=== PATIENT | female | born 1955 | race Caucasian/White ===

== ENCOUNTER 2021-06-29 09:49 | Observation (INO) ==
[2021-06-29 15:13] LABS: Basophils # 0.1 10*3/uL (0.0-0.2); Basophils % 0.5 % (0.0-0.8); Hematocrit 47.8 VOL% (35.7-47.0); Hemoglobin 16.4 GM/DL (12.0-16.0); Immature Granulocytes % 0.7 %; Immature Granulocytes Absolute 0.09 #; Lymphocytes # 0.8 10*3/uL (1.4-4.0); Lymphocytes % 6.3 % (21.3-54.2); Mean Corpuscular HGB Conc 34.3 GM/DL (32-36); Mean Corpuscular Volume 86.3 FL (87-102); Mean Platelet Volume 8.7 FL (9.6-12.0); Monocytes % 7.8 % (1.7-12.7); Neutrophils % 84.7 % (38.7-73.9); Platelet Count 288 T/CUMM (130-400); Red Blood Count 5.54 MC/CUMM (3.8-5.5); Red Cell Distribution Width 14.9 % (9.3-17.3); White Blood Count 12.6 T/CUMM (4-12)
[2021-06-29 15:44] LABS: Albumin 3.3 G/DL (3.4-5.0); Bilirubin,Total 0.9 MG/DL (0.20-1.00); Osmolality,Calculated 247.4 MOS/KG (273-304); Potassium 4.4 MMOL/L (3.5-5.1); Total Protein 6.9 G/DL (6.4-8.2)
[2021-06-29 16:38] LABS: Bilirubin,Urine Negative (Negative); Blood, Urine Negative (Negative); Glucose,Urine (UA) Negative (Negative); Ketones,Urine 5 mg/dL (Negative); Mucus,Urine Occasional /LPF (Occasional); Nitrite,Urine Negative (Negative); Protein,Urine Negative; Squamous Epithelial Cell,Urine Occasional /HPF (0-10); Urine Appearance CLEAR (Clear); Urine Color Yellow (Yellow); Urine Specific Gravity 1.003 (1.001-1.035); Urine Urobilinogen < 2.0 EU/DL (0.2-1.0)
[2021-06-29] MEDS ORDERED: NITROGLYCERIN SL 0.4 MG TABLET SL PRN (17:25)
[2021-06-29] MEDS ORDERED: ACETAMINOPHEN 325 MG TABLET PO PRN (17:25)
[2021-06-29] MEDS ORDERED: ONDANSETRON 4 MG/2 ML VIAL IV PRN (17:25)
[2021-06-29] MEDS ORDERED: DEXTROSE 50% 25 GM/50 ML SYRINGE IV PRN (17:25)
[2021-06-29] MEDS ORDERED: MORPHINE 2 MG/1 ML SYRINGE IV PRN (17:25)
[2021-06-29] MEDS ORDERED: hydrALAZINE 20 MG/1 ML VIAL IV PRN (17:25)
[2021-06-29] MEDS ORDERED: DOCUSATE SODIUM 100 MG CAPSULE PO PRN (17:25)
[2021-06-29] MEDS ORDERED: GLUCAGON 1 MG VIAL IM PRN (17:25)
[2021-06-29] MEDS ORDERED: DEXTROSE 5% NACL 0.9% 1,000 ML IV SCH (17:30)
[2021-06-29 17:54] LABS: Barbiturates Screen,Urine Negative (Negative); Benzodiazepines Screen,Urine Negative (Negative); Cannabinoid Screen,Urine Negative (Negative); Opiate Screen,Urine Negative (Negative); Phencyclidine Screen,Urine Negative (Negative)
[2021-06-29] MEDS ORDERED: NICOTINE 21 MG/24 HR PATCH TRANSDERM PRN (18:01)
[2021-06-29 18:02] LABS: Risk Ratio 1.52; Thyroid Stimulating Hormone 6.67 uIU/ml (0.358-3.74)
[2021-06-29 18:46] LABS: Folate > 24.00 NG/ML (5.38-24.0); Vitamin B12 > 2000 PG/ML (211-911)
[2021-06-29 19:48] LABS: INR 1.1; PT Patient Result 12.3 SECS (10.5-12.0); Partial Thromboplastin Time 33.5 SECS (23.8-32.1)
[2021-06-29] MEDS: ENOXAPARIN 40 MG/0.4 ML SYRINGE SUBCUT SCH (19:57)
[2021-06-29] MEDS: chlordiazePOXIDE 25 MG CAPSULE PO SCH (21:19)
[2021-06-30] MEDS: chlordiazePOXIDE 25 MG CAPSULE PO SCH ×2 (02:14→13:02)
[2021-06-30 05:57] LABS: Calcium 8.1 MG/DL (8.5-10.1); Osmolality,Calculated 256.7 MOS/KG (273-304); Potassium 3.5 MMOL/L (3.5-5.1)
[2021-06-30 06:10] LABS: Basophils # 0.1 10*3/uL (0.0-0.2); Basophils % 0.7 % (0.0-0.8); Eosinophils % 0.4 % (0.00-10.9); Hematocrit 41.1 VOL% (35.7-47.0); Immature Granulocytes % 0.7 %; Immature Granulocytes Absolute 0.05 #; Lymphocytes # 0.9 10*3/uL (1.4-4.0); Lymphocytes % 13.7 % (21.3-54.2); Mean Corpuscular HGB Conc 33.6 GM/DL (32-36); Mean Corpuscular Volume 88.8 FL (87-102); Mean Platelet Volume 9.2 FL (9.6-12.0); Monocytes % 9.9 % (1.7-12.7); Neutrophils % 74.6 % (38.7-73.9); Platelet Count 250 T/CUMM (130-400); Red Blood Count 4.63 MC/CUMM (3.8-5.5); Red Cell Distribution Width 15.1 % (9.3-17.3)
[2021-06-30] MEDS ORDERED: MAGNESIUM SULF RIDER 4 GM/100 ML PREMIX IV ONE (06:10)
[2021-06-30] MEDS ORDERED: POTASSIUM CHLORIDE 20 MEQ TABLET PO ONE (06:11)
[2021-06-30 06:21] LABS: Hemoglobin 13.8 GM/DL (12.0-16.0); White Blood Count 6.8 T/CUMM (4-12)
[2021-06-30] MEDS ORDERED: diphenhydrAMINE CAP 25 MG CAPSULE PO ONE (09:04)
[2021-06-30] MEDS ORDERED: DIAZEPAM 5 MG TABLET PO ONE (09:04)
[2021-06-30] MEDS ORDERED: ASPIRIN CHEW 81 MG TABLET PO ONE (09:04)
[2021-06-30] MEDS: SODIUM CHLORIDE 0.9% 1,000 ML IV SCH ×2 (09:29→20:34)
[2021-06-30] MEDS ORDERED: HYDROmorphone 2 MG/1 ML VIAL ONE (09:34)
[2021-06-30] MEDS ORDERED: lisinopriL 10 MG TABLET PO SCH (09:34)
[2021-06-30] MEDS ORDERED: MIDAZOLAM 2 MG/2 ML VIAL ONE (09:34)
[2021-06-30] MEDS ORDERED: LORazepam 2 MG/1 ML VIAL IV PRN (12:10)
[2021-06-30] MEDS: AZITHROMYCIN INJ 500 MG in SODIUM CHLORIDE 0.9% 250 ML IV SCH (12:37)
[2021-06-30] MEDS: methylPREDNISolone SOD SUC 40 MG/1 ML VIAL IV SCH ×2 (12:41→17:38)
[2021-06-30] MEDS: THIAMINE 100 MG TABLET PO SCH (12:42)
[2021-06-30] MEDS: MULTIVITAMIN (CENTRUM) TABLET PO SCH (12:42)
[2021-06-30] MEDS: FOLIC ACID 1 MG TABLET PO SCH (12:42)
[2021-06-30] MEDS: PANTOPRAZOLE 40 MG TABLET PO SCH (12:42)
[2021-06-30] MEDS: METOPROLOL SUCCINATE XL 25 MG TABLET PO SCH (15:00)
[2021-06-30 16:13] LABS: ABG Base Excess 5.3 MMOL/L (-2.5-2.5); ABG HCO3 28.9 MMOL/L (20-26); ABG PCO2 53.5 MM HG (35-48); ABG PH 7.386 (7.35-7.45); ABG PO2 59.5 MM HG (80-95); ABG TCO2 27.5 MMOL/L (23-27)
[2021-06-30] MEDS: ALBUTEROL/IPRATROPIUM 3 ML NEB RESP TX SCH ×3 (16:24→22:40)
[2021-06-30] MEDS: ENOXAPARIN 40 MG/0.4 ML SYRINGE SUBCUT SCH (17:37)
[2021-06-30] MEDS ORDERED: METOPROLOL SUCCINATE XL 25 MG TABLET PO SCH (21:00)
[2021-06-30] MEDS ORDERED: VERAPAMIL SR 120 MG TABLET PO SCH (21:00)
[2021-07-01] MEDS: methylPREDNISolone SOD SUC 40 MG/1 ML VIAL IV SCH ×2 (01:00→06:23)
[2021-07-01] MEDS: SODIUM CHLORIDE 0.9% 1,000 ML IV SCH ×3 (01:31→13:28)
[2021-07-01] MEDS: ALBUTEROL/IPRATROPIUM 3 ML NEB RESP TX SCH ×4 (03:00→15:17)
[2021-07-01 06:37] LABS: Hematocrit 38.1 VOL% (35.7-47.0); Hemoglobin 12.4 GM/DL (12.0-16.0); Immature Granulocytes Absolute 0.15 #; Lymphocytes # 0.4 10*3/uL (1.4-4.0); Lymphocytes % 5.8 % (21.3-54.2); Mean Corpuscular HGB Conc 32.5 GM/DL (32-36); Mean Corpuscular Volume 89.9 FL (87-102); Mean Platelet Volume 9.1 FL (9.6-12.0); Monocytes % 3.1 % (1.7-12.7); Neutrophils % 89.1 % (38.7-73.9); Platelet Count 231 T/CUMM (130-400); Red Blood Count 4.24 MC/CUMM (3.8-5.5); Red Cell Distribution Width 15.7 % (9.3-17.3); White Blood Count 7.5 T/CUMM (4-12)
[2021-07-01 06:59] LABS: Calcium 7.7 MG/DL (8.5-10.1); Osmolality,Calculated 266.4 MOS/KG (273-304); Potassium 4.3 MMOL/L (3.5-5.1)
[2021-07-01] MEDS ORDERED: ASPIRIN EC 81 MG TABLET PO SCH (09:00)
[2021-07-01] MEDS ORDERED: CLOPIDOGREL 75 MG TABLET PO SCH (09:00)
[2021-07-01] MEDS: THIAMINE 100 MG TABLET PO SCH (09:07)
[2021-07-01] MEDS: MULTIVITAMIN (CENTRUM) TABLET PO SCH (09:07)
[2021-07-01] MEDS: METOPROLOL SUCCINATE XL 25 MG TABLET PO SCH (09:07)
[2021-07-01] MEDS: PANTOPRAZOLE 40 MG TABLET PO SCH (09:07)
[2021-07-01] MEDS: FOLIC ACID 1 MG TABLET PO SCH (09:07)
[2021-07-01 12:16] VITALS: BP 97/55
[2021-07-01] MEDS: AZITHROMYCIN INJ 500 MG in SODIUM CHLORIDE 0.9% 250 ML IV SCH (12:44)
[2021-07-01] MEDS ORDERED: methylPREDNISolone SOD SUC 40 MG/1 ML VIAL IV SCH ×2 (14:00→18:00)
== END 2021-07-01 15:28 | disposition home health service (06) ==
LOC: N.ED 09:49 → N.TELEN 09:49
PROVIDERS: ADMIT Internal Medicine; ATTEND Internal Medicine
PROC: CLCCHCL (ICD-10-PCS; 2021-06-30 09:45)

== ENCOUNTER 2021-08-05 13:29 | Inpatient (IN) ==
[2021-08-05] MEDS ORDERED: SODIUM CHLORIDE 0.9% 1,000 ML IV STA (14:12)
[2021-08-05 14:51] LABS: Basophils % 0.3 % (0.0-0.8); Eosinophils % 0.3 % (0.00-10.9); Hematocrit 37.8 VOL% (35.7-47.0); Hemoglobin 13.1 GM/DL (12.0-16.0); Immature Granulocytes % 1.2 %; Immature Granulocytes Absolute 0.11 #; Lymphocytes # 0.6 10*3/uL (1.4-4.0); Lymphocytes % 6.7 % (21.3-54.2); Mean Corpuscular HGB Conc 34.7 GM/DL (32-36); Mean Corpuscular Volume 86.9 FL (87-102); Mean Platelet Volume 9.1 FL (9.6-12.0); Monocytes % 9.3 % (1.7-12.7); Neutrophils % 82.2 % (38.7-73.9); Platelet Count 255 T/CUMM (130-400); Red Blood Count 4.35 MC/CUMM (3.8-5.5); Red Cell Distribution Width 14.1 % (9.3-17.3); White Blood Count 9.2 T/CUMM (4-12)
[2021-08-05 15:19] LABS: Bacteria,Urine Occasional /HPF (Few); Bilirubin,Urine Negative (Negative); Blood, Urine Negative (Negative); Glucose,Urine (UA) Negative (Negative); Hyaline Casts,Urine 5 /LPF (0-3); Ketones,Urine 20 mg/dL (Negative); Mucus,Urine Occasional /LPF (Occasional); Nitrite,Urine Negative (Negative); Protein,Urine Negative; Squamous Epithelial Cell,Urine Occasional /HPF (0-10); Urine Appearance Slightly Hazy (Clear); Urine Color Amber (Yellow); Urine Specific Gravity 1.011 (1.001-1.035); Urine Urobilinogen < 2.0 EU/DL (<2.0)
[2021-08-05 15:23] LABS: Albumin 3.2 G/DL (3.4-5.0); Bilirubin,Total 0.8 MG/DL (0.20-1.00); Osmolality,Calculated 223.6 MOS/KG (273-304); Potassium 3.5 MMOL/L (3.5-5.1); Prealbumin 11.3 MG/DL (20-40); Total Protein 6.2 G/DL (6.4-8.2)
[2021-08-05] MEDS ORDERED: HYDROCORTISONE 100 MG VIAL IV STA (16:22)
[2021-08-05] MEDS ORDERED: ALBUTEROL 2.5 MG/3 ML NEB RESP TX PRN (16:23)
[2021-08-05] MEDS ORDERED: ONDANSETRON 4 MG/2 ML VIAL IV PRN (16:23)
[2021-08-05] MEDS ORDERED: ACETAMINOPHEN 325 MG TABLET PO PRN (16:23)
[2021-08-05] MEDS ORDERED: SODIUM CHLORIDE 3% INJ 500 ML IV SCH (16:30)
[2021-08-05] MEDS: PANTOPRAZOLE 40 MG VIAL IV SCH (18:06)
[2021-08-05] MEDS: FLUDROCORTISONE 0.1 MG TABLET PO SCH (18:59)
[2021-08-05 19:18] LABS: Calcium 8.4 MG/DL (8.5-10.1); Osmolality,Calculated 226.3 MOS/KG (273-304); Potassium 3.2 MMOL/L (3.5-5.1)
[2021-08-05] MEDS: cefTRIAXone 1,000 MG in SODIUM CHLORIDE 0.9% 100 ML IV SCH (20:23)
[2021-08-05 20:25] LABS: Calcium 8.5 MG/DL (8.5-10.1); Osmolality,Calculated 227.2 MOS/KG (273-304); Potassium 3.4 MMOL/L (3.5-5.1)
[2021-08-05] MEDS: ALBUTEROL/IPRATROPIUM 3 ML NEB RESP TX SCH (20:45)
[2021-08-05] MEDS: ENOXAPARIN 30 MG/0.3 ML SYRINGE SUBCUT SCH (21:31)
[2021-08-05] MEDS: HYDROCORTISONE 100 MG VIAL IV SCH (21:32)
[2021-08-05 22:18] LABS: Osmolality,Calculated 236.5 MOS/KG (273-304); Potassium 3.4 MMOL/L (3.5-5.1)
[2021-08-06 00:21] LABS: Calcium 8.2 MG/DL (8.5-10.1); Osmolality,Calculated 232.8 MOS/KG (273-304); Potassium 3.5 MMOL/L (3.5-5.1)
[2021-08-06] MEDS: MAGNESIUM SULF RIDER 4 GM/100 ML PREMIX IV PRN (00:38)
[2021-08-06] MEDS: ALBUTEROL/IPRATROPIUM 3 ML NEB RESP TX SCH ×4 (01:26→20:15)
[2021-08-06 02:40] LABS: Calcium 8.2 MG/DL (8.5-10.1); Osmolality,Calculated 240.2 MOS/KG (273-304); Potassium 3.4 MMOL/L (3.5-5.1)
[2021-08-06] MEDS: FLUDROCORTISONE 0.1 MG TABLET PO SCH ×3 (02:53→20:50)
[2021-08-06] MEDS: HYDROCORTISONE 100 MG VIAL IV SCH ×4 (03:09→20:50)
[2021-08-06] MEDS ORDERED: DEXTROSE 5% 1,000 ML IV SCH (03:30)
[2021-08-06 04:17] LABS: Basophils % 0.2 % (0.0-0.8); Eosinophils % 0.2 % (0.00-10.9); Hemoglobin 11.9 GM/DL (12.0-16.0); Immature Granulocytes % 1.9 %; Immature Granulocytes Absolute 0.11 #; Lymphocytes # 0.3 10*3/uL (1.4-4.0); Lymphocytes % 5.3 % (21.3-54.2); Mean Corpuscular Volume 88.2 FL (87-102); Mean Platelet Volume 10.2 FL (9.6-12.0); Neutrophils % 87.4 % (38.7-73.9); Platelet Count 296 T/CUMM (130-400); Red Blood Count 3.97 MC/CUMM (3.8-5.5); Red Cell Distribution Width 14.6 % (9.3-17.3); White Blood Count 5.8 T/CUMM (4-12)
[2021-08-06 05:24] LABS: Calcium 8.5 MG/DL (8.5-10.1); Osmolality,Calculated 235.6 MOS/KG (273-304); Potassium 3.8 MMOL/L (3.5-5.1)
[2021-08-06 06:22] LABS: Calcium 8.3 MG/DL (8.5-10.1); Osmolality,Calculated 241.2 MOS/KG (273-304); Potassium 3.4 MMOL/L (3.5-5.1)
[2021-08-06 08:50] LABS: Calcium 8.1 MG/DL (8.5-10.1); Osmolality,Calculated 238.5 MOS/KG (273-304); Potassium 3.3 MMOL/L (3.5-5.1)
[2021-08-06] MEDS: CLOPIDOGREL 75 MG TABLET PO SCH (09:30)
[2021-08-06] MEDS: ASPIRIN EC 81 MG TABLET PO SCH (09:30)
[2021-08-06 10:49] LABS: Calcium 8.6 MG/DL (8.5-10.1); Osmolality,Calculated 239.3 MOS/KG (273-304); Potassium 3.4 MMOL/L (3.5-5.1)
[2021-08-06] MEDS: SODIUM CHLORIDE 3% INJ 500 ML IV SCH (10:50)
[2021-08-06 14:13] LABS: Calcium 8.1 MG/DL (8.5-10.1); Osmolality,Calculated 238.3 MOS/KG (273-304); Potassium 3.3 MMOL/L (3.5-5.1)
[2021-08-06] MEDS ORDERED: BUPRENORPHINE NALOXONE SL PRN (15:42)
[2021-08-06 16:20] LABS: Calcium 8.2 MG/DL (8.5-10.1); Osmolality,Calculated 239.5 MOS/KG (273-304); Potassium 3.2 MMOL/L (3.5-5.1)
[2021-08-06] MEDS: POTASSIUM CHLORIDE 20 MEQ TABLET PO PRN ×3 (16:44→23:55)
[2021-08-06] MEDS: PANTOPRAZOLE 40 MG VIAL IV SCH (16:44)
[2021-08-06] MEDS: NICOTINE 21 MG/24 HR PATCH TRANSDERM PRN (16:45)
[2021-08-06] MEDS: cefTRIAXone 1,000 MG in SODIUM CHLORIDE 0.9% 100 ML IV SCH (17:55)
[2021-08-06 18:53] LABS: Calcium 8.1 MG/DL (8.5-10.1); Osmolality,Calculated 241.3 MOS/KG (273-304); Potassium 3.3 MMOL/L (3.5-5.1)
[2021-08-06 20:32] LABS: Calcium 8.3 MG/DL (8.5-10.1); Osmolality,Calculated 250.2 MOS/KG (273-304); Potassium 3.6 MMOL/L (3.5-5.1)
[2021-08-06] MEDS: ENOXAPARIN 30 MG/0.3 ML SYRINGE SUBCUT SCH (20:50)
[2021-08-06 21:45] LABS: Osmolality,Calculated 260.8 MOS/KG (273-304); Potassium 3.6 MMOL/L (3.5-5.1)
[2021-08-06 23:50] LABS: Calcium 8.2 MG/DL (8.5-10.1); Osmolality,Calculated 261.5 MOS/KG (273-304); Potassium 3.8 MMOL/L (3.5-5.1)
[2021-08-07] MEDS: MAGNESIUM SULF RIDER 2 GM/50 ML PREMIX IV PRN (00:01)
[2021-08-07] MEDS: ALBUTEROL/IPRATROPIUM 3 ML NEB RESP TX SCH ×4 (00:43→20:00)
[2021-08-07 00:58] LABS: Calcium 8.4 MG/DL (8.5-10.1); Osmolality,Calculated 255.8 MOS/KG (273-304); Potassium 3.8 MMOL/L (3.5-5.1)
[2021-08-07] MEDS: HYDROCORTISONE 100 MG VIAL IV SCH ×4 (03:15→20:12)
[2021-08-07 05:51] LABS: Basophils % 0.1 % (0.0-0.8); Hematocrit 35.3 VOL% (35.7-47.0); Hemoglobin 11.6 GM/DL (12.0-16.0); Immature Granulocytes % 1.1 %; Immature Granulocytes Absolute 0.09 #; Lymphocytes # 0.2 10*3/uL (1.4-4.0); Lymphocytes % 2.8 % (21.3-54.2); Mean Corpuscular HGB Conc 32.9 GM/DL (32-36); Mean Platelet Volume 9.6 FL (9.6-12.0); Monocytes % 10.1 % (1.7-12.7); Neutrophils % 85.9 % (38.7-73.9); Platelet Count 248 T/CUMM (130-400); Red Blood Count 3.88 MC/CUMM (3.8-5.5); Red Cell Distribution Width 14.8 % (9.3-17.3); White Blood Count 8.2 T/CUMM (4-12)
[2021-08-07 06:14] LABS: Calcium 8.4 MG/DL (8.5-10.1); Osmolality,Calculated 257.4 MOS/KG (273-304); Potassium 3.8 MMOL/L (3.5-5.1)
[2021-08-07 06:26] LABS: Hypochromia Slight; Lymphocytes 2 % (20-55); Microcytosis Slight; Platelet Estimate Adequate; Segmented Neutrophils 89 % (50-85); Total Cells Counted 100
[2021-08-07 07:10] LABS: Calcium 8.2 MG/DL (8.5-10.1); Osmolality,Calculated 263.2 MOS/KG (273-304); Potassium 3.9 MMOL/L (3.5-5.1)
[2021-08-07] MEDS: ASPIRIN EC 81 MG TABLET PO SCH (08:25)
[2021-08-07] MEDS: CLOPIDOGREL 75 MG TABLET PO SCH (08:26)
[2021-08-07] MEDS: FLUDROCORTISONE 0.1 MG TABLET PO SCH ×2 (08:26→20:10)
[2021-08-07 09:07] LABS: Calcium 8.5 MG/DL (8.5-10.1); Osmolality,Calculated 259.5 MOS/KG (273-304); Potassium 3.7 MMOL/L (3.5-5.1)
[2021-08-07] MEDS: SODIUM CHLORIDE 3% INJ 500 ML IV SCH ×2 (10:05→23:04)
[2021-08-07 13:23] LABS: Calcium 8.2 MG/DL (8.5-10.1); Osmolality,Calculated 264.9 MOS/KG (273-304); Potassium 3.8 MMOL/L (3.5-5.1)
[2021-08-07] MEDS: PANTOPRAZOLE 40 MG VIAL IV SCH (15:58)
[2021-08-07] MEDS: NICOTINE 21 MG/24 HR PATCH TRANSDERM PRN (15:58)
[2021-08-07 17:16] LABS: Calcium 8.3 MG/DL (8.5-10.1); Osmolality,Calculated 260.9 MOS/KG (273-304); Potassium 3.8 MMOL/L (3.5-5.1)
[2021-08-07] MEDS: cefTRIAXone 1,000 MG in SODIUM CHLORIDE 0.9% 100 ML IV SCH (17:41)
[2021-08-07] MEDS: ENOXAPARIN 30 MG/0.3 ML SYRINGE SUBCUT SCH (20:12)
[2021-08-07 21:01] LABS: Calcium 7.9 MG/DL (8.5-10.1); Osmolality,Calculated 266.8 MOS/KG (273-304); Potassium 3.1 MMOL/L (3.5-5.1)
[2021-08-07] MEDS: POTASSIUM CHLORIDE 20 MEQ TABLET PO PRN ×2 (21:53→23:45)
[2021-08-08 01:08] LABS: Calcium 8.1 MG/DL (8.5-10.1); Osmolality,Calculated 267.2 MOS/KG (273-304); Potassium 3.6 MMOL/L (3.5-5.1)
[2021-08-08] MEDS: ALBUTEROL/IPRATROPIUM 3 ML NEB RESP TX SCH ×4 (01:17→20:14)
[2021-08-08] MEDS: HYDROCORTISONE 100 MG VIAL IV SCH ×3 (03:15→17:48)
[2021-08-08 03:31] LABS: Basophils % 0.1 % (0.0-0.8); Hematocrit 31.2 VOL% (35.7-47.0); Hemoglobin 9.9 GM/DL (12.0-16.0); Immature Granulocytes % 1.9 %; Lymphocytes # 0.4 10*3/uL (1.4-4.0); Lymphocytes % 3.7 % (21.3-54.2); Mean Corpuscular HGB Conc 31.7 GM/DL (32-36); Mean Corpuscular Volume 94.8 FL (87-102); Mean Platelet Volume 9.2 FL (9.6-12.0); Monocytes % 8.6 % (1.7-12.7); Neutrophils % 85.7 % (38.7-73.9); Platelet Count 223 T/CUMM (130-400); Red Blood Count 3.29 MC/CUMM (3.8-5.5); Red Cell Distribution Width 15.6 % (9.3-17.3); White Blood Count 10.6 T/CUMM (4-12)
[2021-08-08 03:49] LABS: Calcium 7.9 MG/DL (8.5-10.1); Osmolality,Calculated 267.4 MOS/KG (273-304); Potassium 3.6 MMOL/L (3.5-5.1)
[2021-08-08 04:04] LABS: Lymphocytes 5 % (20-55); Microcytosis Slight; Segmented Neutrophils 94 % (50-85); Total Cells Counted 100
[2021-08-08 04:05] LABS: Hypochromia Slight; Platelet Estimate Normal
[2021-08-08] MEDS ORDERED: HYDROCORTISONE 100 MG VIAL ONE (08:42)
[2021-08-08] MEDS: ASPIRIN EC 81 MG TABLET PO SCH (08:46)
[2021-08-08] MEDS: CLOPIDOGREL 75 MG TABLET PO SCH (08:46)
[2021-08-08] MEDS: FLUDROCORTISONE 0.1 MG TABLET PO SCH ×2 (08:46→20:55)
[2021-08-08 12:13] LABS: Calcium 8.2 MG/DL (8.5-10.1); Osmolality,Calculated 264.8 MOS/KG (273-304); Potassium 3.7 MMOL/L (3.5-5.1)
[2021-08-08] MEDS: SODIUM CHLORIDE 3% INJ 500 ML IV SCH (13:04)
[2021-08-08] MEDS: POTASSIUM CHLORIDE 20 MEQ PACK PEG SCH ×3 (13:14→19:52)
[2021-08-08] MEDS: FUROSEMIDE 40 MG/4 ML VIAL IV SCH ×2 (13:14→17:48)
[2021-08-08] MEDS: PANTOPRAZOLE 40 MG TABLET PO SCH ×2 (13:14→20:55)
[2021-08-08] MEDS: MAGNESIUM SULF RIDER 4 GM/100 ML PREMIX IV PRN (14:40)
[2021-08-08] MEDS: cefTRIAXone 1,000 MG in SODIUM CHLORIDE 0.9% 100 ML IV SCH (17:48)
[2021-08-08 19:00] LABS: Calcium 8.4 MG/DL (8.5-10.1); Osmolality,Calculated 257.2 MOS/KG (273-304); Potassium 2.8 MMOL/L (3.5-5.1)
[2021-08-08] MEDS: ENOXAPARIN 30 MG/0.3 ML SYRINGE SUBCUT SCH (20:57)
[2021-08-08 21:50] LABS: Calcium 8.5 MG/DL (8.5-10.1); Osmolality,Calculated 258.1 MOS/KG (273-304); Potassium 2.9 MMOL/L (3.5-5.1)
[2021-08-09] MEDS: ALBUTEROL/IPRATROPIUM 3 ML NEB RESP TX SCH ×4 (00:05→19:15)
[2021-08-09] MEDS: POTASSIUM CHLORIDE 20 MEQ PACK PEG SCH (00:19)
[2021-08-09 01:05] LABS: Basophils % 0.3 % (0.0-0.8); Eosinophils % 0.1 % (0.00-10.9); Hematocrit 33.5 VOL% (35.7-47.0); Hemoglobin 10.8 GM/DL (12.0-16.0); Immature Granulocytes % 5.5 %; Immature Granulocytes Absolute 0.57 #; Lymphocytes # 1.4 10*3/uL (1.4-4.0); Mean Corpuscular HGB Conc 32.2 GM/DL (32-36); Mean Corpuscular Volume 94.1 FL (87-102); Mean Platelet Volume 9.2 FL (9.6-12.0); Monocytes % 17.1 % (1.7-12.7); Platelet Count 257 T/CUMM (130-400); Red Blood Count 3.56 MC/CUMM (3.8-5.5); Red Cell Distribution Width 15.5 % (9.3-17.3); White Blood Count 10.3 T/CUMM (4-12)
[2021-08-09] MEDS: HYDROCORTISONE 100 MG VIAL IV SCH ×3 (01:15→17:03)
[2021-08-09 01:28] LABS: Calcium 8.5 MG/DL (8.5-10.1); Osmolality,Calculated 257.9 MOS/KG (273-304)
[2021-08-09 02:23] LABS: Lymphocytes 14 % (20-55); Segmented Neutrophils 73 % (50-85); Total Cells Counted 100
[2021-08-09 02:24] LABS: Platelet Estimate Normal
[2021-08-09 02:25] LABS: Stomatocytes 1+
[2021-08-09 02:26] LABS: Anisocytosis Slight; Macrocytosis Slight
[2021-08-09 05:02] LABS: Calcium 8.4 MG/DL (8.5-10.1); Osmolality,Calculated 256.1 MOS/KG (273-304); Potassium 3.2 MMOL/L (3.5-5.1)
[2021-08-09] MEDS: SODIUM CHLORIDE 3% INJ 500 ML IV SCH ×2 (07:10→12:21)
[2021-08-09] MEDS: PANTOPRAZOLE 40 MG TABLET PO SCH ×2 (08:23→21:01)
[2021-08-09] MEDS: FUROSEMIDE 40 MG/4 ML VIAL IV SCH ×2 (08:23→17:03)
[2021-08-09] MEDS: POTASSIUM CHLORIDE 20 MEQ TABLET PO PRN ×2 (08:23→18:26)
[2021-08-09] MEDS: FLUDROCORTISONE 0.1 MG TABLET PO SCH ×2 (08:23→21:01)
[2021-08-09] MEDS: ASPIRIN EC 81 MG TABLET PO SCH (08:23)
[2021-08-09] MEDS: MAGNESIUM SULF RIDER 2 GM/50 ML PREMIX IV PRN (08:23)
[2021-08-09] MEDS: CLOPIDOGREL 75 MG TABLET PO SCH (08:23)
[2021-08-09 12:06] LABS: Calcium 8.1 MG/DL (8.5-10.1); Osmolality,Calculated 256.2 MOS/KG (273-304); Potassium 3.2 MMOL/L (3.5-5.1)
[2021-08-09] MEDS ORDERED: POTASSIUM CHLORIDE 20 MEQ TABLET PO ONE (14:00)
[2021-08-09] MEDS: cefTRIAXone 1,000 MG in SODIUM CHLORIDE 0.9% 100 ML IV SCH (17:03)
[2021-08-09] MEDS: SODIUM CHLORIDE 0.9% 1,000 ML IV SCH (17:41)
[2021-08-09 18:23] LABS: Calcium 8.7 MG/DL (8.5-10.1); Osmolality,Calculated 257.4 MOS/KG (273-304); Potassium 3.9 MMOL/L (3.5-5.1)
[2021-08-09] MEDS: NICOTINE 21 MG/24 HR PATCH TRANSDERM PRN (18:27)
[2021-08-09] MEDS: ENOXAPARIN 30 MG/0.3 ML SYRINGE SUBCUT SCH (21:01)
[2021-08-10] MEDS: ALBUTEROL/IPRATROPIUM 3 ML NEB RESP TX SCH ×4 (00:41→20:27)
[2021-08-10] MEDS: HYDROCORTISONE 100 MG VIAL IV SCH ×3 (01:04→16:30)
[2021-08-10 01:26] LABS: Calcium 8.7 MG/DL (8.5-10.1); Osmolality,Calculated 262.9 MOS/KG (273-304); Potassium 3.4 MMOL/L (3.5-5.1)
[2021-08-10] MEDS: POTASSIUM CHLORIDE 20 MEQ TABLET PO PRN ×2 (01:54→03:50)
[2021-08-10] MEDS: SODIUM CHLORIDE 0.9% 1,000 ML IV SCH ×2 (03:36→16:30)
[2021-08-10 05:35] LABS: Calcium 8.6 MG/DL (8.5-10.1); Osmolality,Calculated 256.4 MOS/KG (273-304); Potassium 3.6 MMOL/L (3.5-5.1)
[2021-08-10] MEDS: MAGNESIUM SULF RIDER 2 GM/50 ML PREMIX IV PRN (06:30)
[2021-08-10] MEDS: ASPIRIN EC 81 MG TABLET PO SCH (08:02)
[2021-08-10] MEDS: FLUDROCORTISONE 0.1 MG TABLET PO SCH ×2 (08:02→21:10)
[2021-08-10] MEDS: CLOPIDOGREL 75 MG TABLET PO SCH (08:02)
[2021-08-10 13:19] LABS: Basophils % 0.4 % (0.0-0.8); Hematocrit 36.4 VOL% (35.7-47.0); Hemoglobin 11.2 GM/DL (12.0-16.0); Immature Granulocytes % 4.5 %; Immature Granulocytes Absolute 0.43 #; Lymphocytes # 0.7 10*3/uL (1.4-4.0); Lymphocytes % 7.3 % (21.3-54.2); Mean Corpuscular HGB Conc 30.8 GM/DL (32-36); Mean Corpuscular Volume 98.1 FL (87-102); Mean Platelet Volume 9.4 FL (9.6-12.0); Monocytes % 10.6 % (1.7-12.7); Neutrophils % 77.2 % (38.7-73.9); Platelet Count 288 T/CUMM (130-400); Red Blood Count 3.71 MC/CUMM (3.8-5.5); Red Cell Distribution Width 16.2 % (9.3-17.3); White Blood Count 9.5 T/CUMM (4-12)
[2021-08-10 13:51] LABS: Atypical Lymphocytes Few; Band Neutrophils 1 % (0-10); Lymphocytes 7 % (20-55); Platelet Estimate Normal; Segmented Neutrophils 82 % (50-85); Total Cells Counted 100
[2021-08-10 13:52] LABS: Target Cells Slight
[2021-08-10] MEDS: cefTRIAXone 1,000 MG in SODIUM CHLORIDE 0.9% 100 ML IV SCH (17:23)
[2021-08-10] MEDS: ENOXAPARIN 30 MG/0.3 ML SYRINGE SUBCUT SCH (21:09)
[2021-08-11] MEDS: HYDROCORTISONE 100 MG VIAL IV SCH ×3 (00:22→17:36)
[2021-08-11] MEDS: ALBUTEROL/IPRATROPIUM 3 ML NEB RESP TX SCH ×4 (00:46→18:55)
[2021-08-11] MEDS: SODIUM CHLORIDE 0.9% 1,000 ML IV SCH ×3 (01:31→16:59)
[2021-08-11 05:11] LABS: Basophils # 0.1 10*3/uL (0.0-0.2); Basophils % 0.6 % (0.0-0.8); Hematocrit 34.7 VOL% (35.7-47.0); Hemoglobin 10.8 GM/DL (12.0-16.0); Immature Granulocytes % 6.2 %; Immature Granulocytes Absolute 0.89 #; Lymphocytes % 6.6 % (21.3-54.2); Mean Corpuscular HGB Conc 31.1 GM/DL (32-36); Mean Corpuscular Volume 96.4 FL (87-102); Mean Platelet Volume 9.3 FL (9.6-12.0); Monocytes % 8.3 % (1.7-12.7); Neutrophils % 78.3 % (38.7-73.9); Platelet Count 325 T/CUMM (130-400); White Blood Count 14.3 T/CUMM (4-12)
[2021-08-11 05:36] LABS: Osmolality,Calculated 267.5 MOS/KG (273-304); Potassium 3.3 MMOL/L (3.5-5.1)
[2021-08-11 05:43] LABS: Hypochromia Slight; Lymphocytes 8 % (20-55); Microcytosis Slight; Platelet Estimate Adequate; Segmented Neutrophils 83 % (50-85); Total Cells Counted 100
[2021-08-11] MEDS: MAGNESIUM SULF RIDER 2 GM/50 ML PREMIX IV PRN (06:01)
[2021-08-11] MEDS: POTASSIUM CHLORIDE 20 MEQ TABLET PO PRN ×2 (06:01→10:35)
[2021-08-11] MEDS: CLOPIDOGREL 75 MG TABLET PO SCH (08:16)
[2021-08-11] MEDS: ASPIRIN EC 81 MG TABLET PO SCH (08:16)
[2021-08-11] MEDS: FLUDROCORTISONE 0.1 MG TABLET PO SCH ×2 (08:16→20:09)
[2021-08-11] MEDS: MAGNESIUM OXIDE 400 MG TABLET PO SCH (08:27)
[2021-08-11] MEDS: AZITHROMYCIN INJ 500 MG in SODIUM CHLORIDE 0.9% 250 ML IV SCH (08:27)
[2021-08-11] MEDS ORDERED: METOPROLOL SUCCINATE XL 25 MG TABLET PO ONE (10:01)
[2021-08-11] MEDS: cefTRIAXone 1,000 MG in SODIUM CHLORIDE 0.9% 100 ML IV SCH (17:54)
[2021-08-11] MEDS: ACETYLCYSTEINE 20% 800 MG/4 ML VIAL RESP TX SCH (18:20)
[2021-08-11] MEDS: BUDESONIDE 0.5 MG/2 ML NEB RESP TX SCH (18:55)
[2021-08-11] MEDS: ENOXAPARIN 30 MG/0.3 ML SYRINGE SUBCUT SCH (20:09)
[2021-08-12] MEDS: SODIUM CHLORIDE 0.9% 1,000 ML IV SCH ×3 (00:08→05:27)
[2021-08-12] MEDS: ACETYLCYSTEINE 20% 800 MG/4 ML VIAL RESP TX SCH ×3 (00:52→15:10)
[2021-08-12] MEDS: ALBUTEROL/IPRATROPIUM 3 ML NEB RESP TX SCH ×4 (00:52→20:45)
[2021-08-12] MEDS: HYDROCORTISONE 100 MG VIAL IV SCH ×3 (00:56→16:54)
[2021-08-12] MEDS ORDERED: FUROSEMIDE 40 MG/4 ML VIAL IV SCH (04:51)
[2021-08-12] MEDS ORDERED: METOPROLOL TARTRATE 5 MG/5 ML VIAL IV PRN (05:07)
[2021-08-12 06:05] LABS: Basophils % 0.2 % (0.0-0.8); Hematocrit 33.4 VOL% (35.7-47.0); Hemoglobin 10.3 GM/DL (12.0-16.0); Immature Granulocytes % 4.5 %; Lymphocytes # 0.7 10*3/uL (1.4-4.0); Lymphocytes % 5.4 % (21.3-54.2); Mean Corpuscular HGB Conc 30.8 GM/DL (32-36); Mean Corpuscular Volume 97.4 FL (87-102); Mean Platelet Volume 9.3 FL (9.6-12.0); Monocytes % 8.3 % (1.7-12.7); Neutrophils % 81.6 % (38.7-73.9); Platelet Count 368 T/CUMM (130-400); Red Blood Count 3.43 MC/CUMM (3.8-5.5); Red Cell Distribution Width 16.4 % (9.3-17.3); White Blood Count 13.2 T/CUMM (4-12)
[2021-08-12 06:30] LABS: Band Neutrophils 2 % (0-10); Hypochromia 1+; Lymphocytes 4 % (20-55); Microcytosis 1+; Platelet Estimate Adequate; Segmented Neutrophils 88 % (50-85); Total Cells Counted 100
[2021-08-12 06:34] LABS: Alanine Aminotransferase 23 U/L (13-56); Albumin 2.5 G/DL (3.4-5.0); Alkaline Phosphatase 80 U/L (45-117); Aspartate Amino Transferase 24 U/L (0-37); Bilirubin,Total < 0.39 MG/DL (0.20-1.00); Blood Urea Nitrogen 22 MG/DL (7-18); Calcium 8.9 MG/DL (8.5-10.1); Carbon Dioxide 39 MMOL/L (21-32); Estimated Glom Filtration Rate 99 ML/MIN; Glucose 110 MG/DL (74-106); Osmolality,Calculated 267.5 MOS/KG (273-304); Potassium 3.3 MMOL/L (3.5-5.1); Sodium 132 MMOL/L (136-145); Total Protein 5.5 G/DL (6.4-8.2)
[2021-08-12] MEDS: MAGNESIUM SULF RIDER 2 GM/50 ML PREMIX IV PRN (06:41)
[2021-08-12] MEDS: POTASSIUM CHLORIDE 20 MEQ TABLET PO PRN (06:41)
[2021-08-12] MEDS: BUDESONIDE 0.5 MG/2 ML NEB RESP TX SCH ×2 (07:12→20:45)
[2021-08-12] MEDS ORDERED: FUROSEMIDE 40 MG/4 ML VIAL IV ONE (07:35)
[2021-08-12] MEDS ORDERED: POTASSIUM CHLORIDE 20 MEQ PACK PO ONE (07:35)
[2021-08-12] MEDS: FUROSEMIDE 40 MG/4 ML VIAL IV SCH ×2 (08:00→16:54)
[2021-08-12] MEDS: MAGNESIUM OXIDE 400 MG TABLET PO SCH (08:00)
[2021-08-12] MEDS: CLOPIDOGREL 75 MG TABLET PO SCH (08:00)
[2021-08-12] MEDS: ASPIRIN EC 81 MG TABLET PO SCH (08:00)
[2021-08-12] MEDS: FLUDROCORTISONE 0.1 MG TABLET PO SCH ×2 (08:00→22:03)
[2021-08-12] MEDS: AZITHROMYCIN INJ 500 MG in SODIUM CHLORIDE 0.9% 250 ML IV SCH (08:59)
[2021-08-12] MEDS: cefTRIAXone 1,000 MG in SODIUM CHLORIDE 0.9% 100 ML IV SCH (17:43)
[2021-08-12] MEDS ORDERED: METOPROLOL SUCCINATE XL 25 MG TABLET PO SCH (21:00)
[2021-08-12] MEDS: ENOXAPARIN 30 MG/0.3 ML SYRINGE SUBCUT SCH (22:04)
[2021-08-13] MEDS: ACETYLCYSTEINE 20% 800 MG/4 ML VIAL RESP TX SCH ×3 (00:30→13:34)
[2021-08-13] MEDS: ALBUTEROL/IPRATROPIUM 3 ML NEB RESP TX SCH ×3 (00:35→13:34)
[2021-08-13 04:47] LABS: Basophils % 0.2 % (0.0-0.8); Eosinophils % 0.2 % (0.00-10.9); Hematocrit 35.6 VOL% (35.7-47.0); Hemoglobin 11.2 GM/DL (12.0-16.0); Immature Granulocytes % 2.3 %; Immature Granulocytes Absolute 0.25 #; Lymphocytes # 1.4 10*3/uL (1.4-4.0); Lymphocytes % 13.2 % (21.3-54.2); Mean Corpuscular HGB Conc 31.5 GM/DL (32-36); Mean Corpuscular Volume 95.4 FL (87-102); Mean Platelet Volume 8.7 FL (9.6-12.0); Monocytes % 15.2 % (1.7-12.7); Neutrophils % 68.9 % (38.7-73.9); Platelet Count 396 T/CUMM (130-400); Red Blood Count 3.73 MC/CUMM (3.8-5.5); Red Cell Distribution Width 16.1 % (9.3-17.3); White Blood Count 10.8 T/CUMM (4-12)
[2021-08-13] MEDS: HYDROCORTISONE 100 MG VIAL IV SCH ×3 (05:14→16:33)
[2021-08-13 05:58] LABS: Alanine Aminotransferase 32 U/L (13-56); Albumin 2.6 G/DL (3.4-5.0); Alkaline Phosphatase 76 U/L (45-117); Aspartate Amino Transferase 34 U/L (0-37); Bilirubin,Total < 0.39 MG/DL (0.20-1.00); Blood Urea Nitrogen 30 MG/DL (7-18); Calcium 8.7 MG/DL (8.5-10.1); Carbon Dioxide 45 MMOL/L (21-32); Estimated Glom Filtration Rate 99 ML/MIN; Glucose 96 MG/DL (74-106); Osmolality,Calculated 273.2 MOS/KG (273-304); Sodium 134 MMOL/L (136-145); Total Protein 5.5 G/DL (6.4-8.2)
[2021-08-13 06:03] LABS: Potassium 2.5 MMOL/L (3.5-5.1)
[2021-08-13] MEDS: POTASSIUM CHLORIDE 20 MEQ TABLET PO PRN ×4 (06:19→12:14)
[2021-08-13] MEDS: BUDESONIDE 0.5 MG/2 ML NEB RESP TX SCH (07:14)
[2021-08-13] MEDS: SODIUM CHLORIDE 0.9% 1,000 ML IV SCH ×2 (07:20→16:33)
[2021-08-13] MEDS: FUROSEMIDE 40 MG/4 ML VIAL IV SCH ×2 (08:28→16:29)
[2021-08-13] MEDS: CLOPIDOGREL 75 MG TABLET PO SCH (08:28)
[2021-08-13] MEDS: MAGNESIUM OXIDE 400 MG TABLET PO SCH (08:28)
[2021-08-13] MEDS: POTASSIUM CHLORIDE RIDER 10 MEQ/100 ML PREMIX IV SCH ×6 (08:28→13:16)
[2021-08-13] MEDS: AZITHROMYCIN INJ 500 MG in SODIUM CHLORIDE 0.9% 250 ML IV SCH (08:28)
[2021-08-13] MEDS: FLUDROCORTISONE 0.1 MG TABLET PO SCH (08:28)
[2021-08-13] MEDS: ASPIRIN EC 81 MG TABLET PO SCH (08:28)
[2021-08-13] MEDS ORDERED: MAGNESIUM OXIDE 400 MG TABLET PO ONE (15:00)
[2021-08-13 16:41] VITALS: BP 130/77
== END 2021-08-13 17:43 | disposition home health service (06) | DRG 917 ==
LOC: N.ED 13:29 → SUATTDRO 16:03 → N.EDINP 16:03 → N.ICU 08-06 07:04
PROVIDERS: ADMIT Internal Medicine; ATTEND Internal Medicine

== ENCOUNTER 2021-11-03 19:06 | Inpatient (IN) ==
[2021-11-03] MEDS ORDERED: SODIUM CHLORIDE 0.9% 1,000 ML IV STA ×2 (19:32→21:40)
[2021-11-03] MEDS ORDERED: ALBUTEROL/IPRATROPIUM 3 ML NEB RESP TX STA (19:32)
[2021-11-03 20:17] LABS: Basophils # 0.1 10*3/uL (0.0-0.2); Basophils % 1.5 % (0.0-0.8); Eosinophils # 0.1 10*3/uL (0.0-0.87); Eosinophils % 0.9 % (0.00-10.9); Hematocrit 46.2 VOL% (35.7-47.0); Hemoglobin 16.2 GM/DL (12.0-16.0); Immature Granulocytes % 2.3 %; Lymphocytes # 1.3 10*3/uL (1.4-4.0); Lymphocytes % 14.6 % (21.3-54.2); Mean Corpuscular HGB Conc 35.1 GM/DL (32-36); Mean Corpuscular Volume 83.7 FL (87-102); Mean Platelet Volume 9.6 FL (9.6-12.0); Monocytes % 13.8 % (1.7-12.7); Neutrophils % 66.9 % (38.7-73.9); Platelet Count 217 T/CUMM (130-400); Red Blood Count 5.52 MC/CUMM (3.8-5.5); Red Cell Distribution Width 13.5 % (9.3-17.3); White Blood Count 8.6 T/CUMM (4-12)
[2021-11-03 20:44] LABS: ABG Base Excess 4.4 MMOL/L (-2.5-2.5); ABG HCO3 28.4 MMOL/L (20-26); ABG Oxygen Saturation 98.7 % (95-100); ABG PCO2 48.7 MM HG (35-48); ABG PH 7.403 (7.35-7.45); ABG TCO2 25.8 MMOL/L (23-27)
[2021-11-03 20:51] LABS: Band Neutrophils 1 % (0-10); Lymphocytes 18 % (20-55); Segmented Neutrophils 64 % (50-85); Total Cells Counted 100
[2021-11-03 20:52] LABS: Anisocytosis 1+; Microcytosis 1+; Platelet Estimate Adequate
[2021-11-03 21:22] LABS: Albumin 4.2 G/DL (3.4-5.0); Bilirubin,Total 1.2 MG/DL (0.20-1.00); Calcium 9.6 MG/DL (8.5-10.1); Osmolality,Calculated 209.7 MOS/KG (273-304); Potassium 4.6 MMOL/L (3.5-5.1); Total Protein 8.5 G/DL (6.4-8.2)
[2021-11-03] MEDS ORDERED: methylPREDNISolone SOD SUC 125 MG/2 ML VIAL IV STA (21:23)
[2021-11-03 23:32] LABS: Squamous Epithelial Cell,Urine Occasional /HPF (0-10); Urine Appearance Clear (Clear); Urine Color Yellow (Yellow)
[2021-11-03 23:33] LABS: Bilirubin,Urine Negative (Negative); Blood, Urine Negative (Negative); Glucose,Urine (UA) Negative (Negative); Ketones,Urine Negative (Negative); Nitrite,Urine Negative (Negative); Protein,Urine Negative (Negative); Urine Urobilinogen 0.2 eU/dL (<2.0)
[2021-11-04 00:31] LABS: ABG Base Excess -8.8 MMOL/L (-2.5-2.5); ABG HCO3 16.3 MMOL/L (20-26); ABG PCO2 41.8 MM HG (35-48); ABG PH 7.245 (7.35-7.45); ABG TCO2 17.1 MMOL/L (23-27)
[2021-11-04 00:34] LABS: ABG PO2 20.3 MM HG (80-95)
[2021-11-04] MEDS ORDERED: ONDANSETRON 4 MG/2 ML VIAL IV PRN (01:34)
[2021-11-04] MEDS ORDERED: ALBUTEROL 2.5 MG/3 ML NEB RESP TX PRN ×2 (01:34→11:13)
[2021-11-04] MEDS ORDERED: MORPHINE 2 MG/1 ML SYRINGE IV PRN (01:34)
[2021-11-04] MEDS ORDERED: LEVOFLOXACIN INJ 500 MG/100 ML PREMIX IV ONE (01:46)
[2021-11-04 01:58] LABS: Arterial Base Excess iSTAT 1 MMOL/L (-2.5-2.5); Arterial Bicarbonate iSTAT 27.9 MMOL/L (20-26); Arterial O2 Saturation iSTAT 89 % (95-100); Arterial PCO2 iSTAT 52 MM HG (35-48); Arterial PO2 iSTAT 62 MM HG (80-95); Arterial Total CO2 iSTAT 29 MMO/L (23-27); Arterial pH iSTAT 7.342 (7.35-7.45)
[2021-11-04] MEDS ORDERED: SODIUM CHLORIDE 3% INJ 500 ML IV SCH (02:00)
[2021-11-04] MEDS ORDERED: PANTOPRAZOLE 40 MG VIAL IV SCH (02:00)
[2021-11-04] MEDS ORDERED: MAGNESIUM SULF RIDER 2 GM/50 ML PREMIX IV ONE (02:18)
[2021-11-04] MEDS ORDERED: DEXTROSE 5% NACL 0.9% 1,000 ML IV SCH (03:00)
[2021-11-04 04:39] LABS: Basophils % 0.5 % (0.0-0.8); Eosinophils % 0.2 % (0.00-10.9); Hematocrit 45.3 VOL% (35.7-47.0); Hemoglobin 15.6 GM/DL (12.0-16.0); Immature Granulocytes % 2.9 %; Immature Granulocytes Absolute 0.16 #; Lymphocytes # 0.3 10*3/uL (1.4-4.0); Lymphocytes % 5.5 % (21.3-54.2); Mean Corpuscular HGB Conc 34.4 GM/DL (32-36); Mean Corpuscular Volume 85.3 FL (87-102); Mean Platelet Volume 10.8 FL (9.6-12.0); Monocytes % 3.9 % (1.7-12.7); Platelet Count 156 T/CUMM (130-400); Red Blood Count 5.31 MC/CUMM (3.8-5.5); Red Cell Distribution Width 13.5 % (9.3-17.3); White Blood Count 5.6 T/CUMM (4-12)
[2021-11-04 05:06] LABS: Potassium 4.8 MMOL/L (3.5-5.1)
[2021-11-04 05:08] LABS: Calcium 8.8 MG/DL (8.5-10.1)
[2021-11-04] MEDS: ALBUTEROL/IPRATROPIUM 3 ML NEB RESP TX SCH ×3 (07:09→19:42)
[2021-11-04] MEDS ORDERED: HYDROCORTISONE 100 MG VIAL IV SCH (08:00)
[2021-11-04] MEDS: ENOXAPARIN 40 MG/0.4 ML SYRINGE SUBCUT SCH (08:56)
[2021-11-04 09:15] LABS: Osmolality,Calculated 247.1 MOS/KG (273-304); Potassium 4.3 MMOL/L (3.5-5.1)
[2021-11-04 12:07] LABS: Bacteria,Urine Occasional /HPF (Few); Bilirubin,Urine Small mg/dL (Negative); Blood, Urine Moderate mg/dL (Negative); Glucose,Urine (UA) 100 mg/dL (Negative); Ketones,Urine 40 mg/dL (Negative); Mucus,Urine Occasional /LPF (Occasional); Nitrite,Urine Negative (Negative); Protein,Urine Negative (Negative); RBC,Urine 21 /HPF (0-4); Squamous Epithelial Cell,Urine Occasional /HPF (0-10); Urine Appearance Clear (Clear); Urine Color Yellow (Yellow); Urine Specific Gravity > 1.030 (1.001-1.035)
[2021-11-04 12:40] LABS: Calcium 8.4 MG/DL (8.5-10.1); Osmolality,Calculated 241.3 MOS/KG (273-304); Potassium 4.3 MMOL/L (3.5-5.1)
[2021-11-04] MEDS: GABAPENTIN 400 MG CAPSULE PO SCH ×2 (15:02→21:03)
[2021-11-04 16:55] LABS: Calcium 7.9 MG/DL (8.5-10.1); Osmolality,Calculated 254.6 MOS/KG (273-304); Potassium 3.7 MMOL/L (3.5-5.1)
[2021-11-04] MEDS: DEXTROSE 5% 1,000 ML IV SCH (17:19)
[2021-11-04] MEDS: HYDROCORTISONE 100 MG VIAL IV SCH (17:19)
[2021-11-04 19:39] LABS: Calcium 8.3 MG/DL (8.5-10.1); Osmolality,Calculated 250.9 MOS/KG (273-304); Potassium 3.7 MMOL/L (3.5-5.1)
[2021-11-04] MEDS: VERAPAMIL SR 120 MG TABLET PO SCH (21:02)
[2021-11-04] MEDS: METOPROLOL SUCCINATE XL 25 MG TABLET PO SCH (21:02)
[2021-11-05 00:43] LABS: Osmolality,Calculated 255.6 MOS/KG (273-304); Potassium 3.7 MMOL/L (3.5-5.1)
[2021-11-05] MEDS: ALBUTEROL/IPRATROPIUM 3 ML NEB RESP TX SCH ×2 (01:16→07:26)
[2021-11-05] MEDS: HYDROCORTISONE 100 MG VIAL IV SCH ×3 (01:30→22:03)
[2021-11-05] MEDS ORDERED: LACTATED RINGERS 500 ML IV ONE (02:40)
[2021-11-05 05:41] LABS: Basophils % 0.1 % (0.0-0.8); Hematocrit 39.2 VOL% (35.7-47.0); Hemoglobin 13.3 GM/DL (12.0-16.0); Immature Granulocytes % 0.7 %; Immature Granulocytes Absolute 0.06 #; Lymphocytes # 0.3 10*3/uL (1.4-4.0); Mean Corpuscular HGB Conc 33.9 GM/DL (32-36); Mean Corpuscular Volume 86.5 FL (87-102); Mean Platelet Volume 9.8 FL (9.6-12.0); Monocytes % 7.4 % (1.7-12.7); Neutrophils % 87.8 % (38.7-73.9); Platelet Count 177 T/CUMM (130-400); Red Blood Count 4.53 MC/CUMM (3.8-5.5); Red Cell Distribution Width 13.9 % (9.3-17.3); White Blood Count 8.2 T/CUMM (4-12)
[2021-11-05 06:06] LABS: Lymphocytes 3 % (20-55); Platelet Estimate Adequate; Segmented Neutrophils 95 % (50-85); Total Cells Counted 100
[2021-11-05 06:07] LABS: Osmolality,Calculated 254.5 MOS/KG (273-304); Potassium 3.6 MMOL/L (3.5-5.1)
[2021-11-05] MEDS ORDERED: DIGOXIN 0.5 MG/2 ML AMP IV ONE (07:06)
[2021-11-05] MEDS: DEXTROSE 5% 1,000 ML IV SCH ×2 (07:23→19:55)
[2021-11-05 08:06] LABS: Calcium 8.1 MG/DL (8.5-10.1); Osmolality,Calculated 264.4 MOS/KG (273-304); Potassium 3.3 MMOL/L (3.5-5.1)
[2021-11-05] MEDS: CLOPIDOGREL 75 MG TABLET PO SCH (08:08)
[2021-11-05] MEDS: ASPIRIN EC 81 MG TABLET PO SCH (08:08)
[2021-11-05] MEDS: ENOXAPARIN 40 MG/0.4 ML SYRINGE SUBCUT SCH (08:08)
[2021-11-05] MEDS: PANTOPRAZOLE 40 MG TABLET PO SCH (08:09)
[2021-11-05] MEDS: GABAPENTIN 400 MG CAPSULE PO SCH ×3 (08:09→22:03)
[2021-11-05] MEDS ORDERED: POTASSIUM CHLORIDE RIDER 10 MEQ/100 ML PREMIX IV PRN (08:12)
[2021-11-05] MEDS: POTASSIUM CHLORIDE 20 MEQ TABLET PO PRN ×3 (09:15→16:43)
[2021-11-05] MEDS: MAGNESIUM SULF RIDER 2 GM/50 ML PREMIX IV PRN (09:59)
[2021-11-05 12:46] LABS: Calcium 8.1 MG/DL (8.5-10.1); Osmolality,Calculated 260.1 MOS/KG (273-304); Potassium 3.9 MMOL/L (3.5-5.1)
[2021-11-05] MEDS: LEVALBUTEROL 1.25 MG/3 ML NEB RESP TX SCH ×2 (13:01→21:30)
[2021-11-05] MEDS: FLUDROCORTISONE 0.1 MG TABLET PO SCH (16:41)
[2021-11-05] MEDS: METOPROLOL SUCCINATE XL 25 MG TABLET PO SCH (22:03)
[2021-11-06] MEDS: LEVALBUTEROL 1.25 MG/3 ML NEB RESP TX SCH ×4 (01:20→18:54)
[2021-11-06 04:19] LABS: Calcium 7.8 MG/DL (8.5-10.1); Osmolality,Calculated 244.9 MOS/KG (273-304); Potassium 5.1 MMOL/L (3.5-5.1)
[2021-11-06] MEDS: MAGNESIUM SULF RIDER 2 GM/50 ML PREMIX IV PRN (05:10)
[2021-11-06] MEDS: HYDROCORTISONE 100 MG VIAL IV SCH ×2 (08:56→21:20)
[2021-11-06] MEDS: GABAPENTIN 400 MG CAPSULE PO SCH ×3 (08:57→21:20)
[2021-11-06] MEDS: CLOPIDOGREL 75 MG TABLET PO SCH (08:57)
[2021-11-06] MEDS: FLUDROCORTISONE 0.1 MG TABLET PO SCH ×2 (08:57→21:22)
[2021-11-06] MEDS: PANTOPRAZOLE 40 MG TABLET PO SCH (08:57)
[2021-11-06] MEDS: ASPIRIN EC 81 MG TABLET PO SCH (08:57)
[2021-11-06] MEDS: ENOXAPARIN 40 MG/0.4 ML SYRINGE SUBCUT SCH (08:57)
[2021-11-06] MEDS: SODIUM CHLORIDE 0.9% 1,000 ML IV SCH (09:07)
[2021-11-06] MEDS ORDERED: FUROSEMIDE 40 MG/4 ML VIAL IV ONE (10:00)
[2021-11-06 12:00] LABS: Calcium 8.4 MG/DL (8.5-10.1)
[2021-11-06 12:17] LABS: Osmolality,Calculated 271.8 MOS/KG (273-304); Potassium 3.6 MMOL/L (3.5-5.1)
[2021-11-06 18:39] LABS: Osmolality,Calculated 255.4 MOS/KG (273-304)
[2021-11-06] MEDS: METOPROLOL SUCCINATE XL 25 MG TABLET PO SCH (21:20)
[2021-11-06 23:48] LABS: Osmolality,Calculated 258.2 MOS/KG (273-304); Potassium 3.8 MMOL/L (3.5-5.1)
[2021-11-07] MEDS: LEVALBUTEROL 1.25 MG/3 ML NEB RESP TX SCH ×4 (00:35→21:55)
[2021-11-07 00:55] LABS: Calcium 8.2 MG/DL (8.5-10.1); Osmolality,Calculated 255.4 MOS/KG (273-304); Potassium 4.2 MMOL/L (3.5-5.1)
[2021-11-07 05:49] LABS: Calcium 8.1 MG/DL (8.5-10.1); Osmolality,Calculated 255.2 MOS/KG (273-304); Potassium 4.2 MMOL/L (3.5-5.1)
[2021-11-07] MEDS: SODIUM CHLORIDE 0.9% 1,000 ML IV SCH ×2 (06:23→17:28)
[2021-11-07] MEDS ORDERED: MAGNESIUM SULF RIDER 4 GM/100 ML PREMIX IV ONE (08:30)
[2021-11-07] MEDS: CLOPIDOGREL 75 MG TABLET PO SCH (08:38)
[2021-11-07] MEDS: PANTOPRAZOLE 40 MG TABLET PO SCH (08:38)
[2021-11-07] MEDS: ENOXAPARIN 40 MG/0.4 ML SYRINGE SUBCUT SCH (08:39)
[2021-11-07] MEDS: GABAPENTIN 400 MG CAPSULE PO SCH ×3 (08:39→21:24)
[2021-11-07] MEDS: ASPIRIN EC 81 MG TABLET PO SCH (08:39)
[2021-11-07] MEDS: FLUDROCORTISONE 0.1 MG TABLET PO SCH ×2 (08:39→21:24)
[2021-11-07] MEDS: HYDROCORTISONE 100 MG VIAL IV SCH ×2 (08:39→21:27)
[2021-11-07 14:22] LABS: Osmolality,Calculated 257.2 MOS/KG (273-304)
[2021-11-07] MEDS: SODIUM CHLORIDE 1 GM TABLET PO SCH ×2 (17:28→21:24)
[2021-11-07 18:01] LABS: Calcium 7.7 MG/DL (8.5-10.1)
[2021-11-07 18:11] LABS: Potassium 3.7 MMOL/L (3.5-5.1)
[2021-11-07 18:19] LABS: Osmolality,Calculated 264.7 MOS/KG (273-304)
[2021-11-07] MEDS: METOPROLOL SUCCINATE XL 25 MG TABLET PO SCH (21:24)
[2021-11-08] MEDS: LEVALBUTEROL 1.25 MG/3 ML NEB RESP TX SCH ×4 (00:11→18:41)
[2021-11-08] MEDS: SODIUM CHLORIDE 0.9% 1,000 ML IV SCH (02:53)
[2021-11-08 03:18] LABS: Calcium 7.8 MG/DL (8.5-10.1); Potassium 4.1 MMOL/L (3.5-5.1)
[2021-11-08 03:24] LABS: Osmolality,Calculated 254.4 MOS/KG (273-304)
[2021-11-08 03:52] LABS: ABG Base Excess 12.5 MMOL/L (-2.5-2.5); ABG Oxygen Saturation 85.9 % (95-100); ABG PH 7.375 (7.35-7.45); ABG PO2 53.4 MM HG (80-95); ABG TCO2 36.6 MMOL/L (23-27)
[2021-11-08 03:58] LABS: ABG PCO2 70.7 MM HG (35-48)
[2021-11-08] MEDS: MAGNESIUM SULF RIDER 2 GM/50 ML PREMIX IV PRN (05:53)
[2021-11-08] MEDS ORDERED: FUROSEMIDE 40 MG/4 ML VIAL IV ONE (07:21)
[2021-11-08] MEDS: PANTOPRAZOLE 40 MG TABLET PO SCH (08:39)
[2021-11-08] MEDS: FLUDROCORTISONE 0.1 MG TABLET PO SCH ×2 (08:39→22:41)
[2021-11-08] MEDS: SODIUM CHLORIDE 1 GM TABLET PO SCH ×4 (08:39→22:41)
[2021-11-08] MEDS: GABAPENTIN 400 MG CAPSULE PO SCH ×3 (08:39→22:41)
[2021-11-08] MEDS: CLOPIDOGREL 75 MG TABLET PO SCH (08:39)
[2021-11-08] MEDS: ASPIRIN EC 81 MG TABLET PO SCH (08:39)
[2021-11-08] MEDS: ENOXAPARIN 40 MG/0.4 ML SYRINGE SUBCUT SCH (08:41)
[2021-11-08] MEDS: HYDROCORTISONE 100 MG VIAL IV SCH (08:48)
[2021-11-08 11:41] LABS: Calcium 8.6 MG/DL (8.5-10.1); Osmolality,Calculated 260.7 MOS/KG (273-304); Potassium 3.8 MMOL/L (3.5-5.1)
[2021-11-08] MEDS ORDERED: HYDROCORTISONE 100 MG VIAL IV SCH (21:00)
[2021-11-08] MEDS: METOPROLOL SUCCINATE XL 25 MG TABLET PO SCH (22:41)
[2021-11-09] MEDS: LEVALBUTEROL 1.25 MG/3 ML NEB RESP TX SCH ×4 (01:45→19:25)
[2021-11-09 06:11] LABS: Basophils % 0.4 % (0.0-0.8); Eosinophils # 0.1 10*3/uL (0.0-0.87); Eosinophils % 0.6 % (0.00-10.9); Hematocrit 38.7 VOL% (35.7-47.0); Immature Granulocytes % 1.3 %; Immature Granulocytes Absolute 0.12 #; Lymphocytes # 1.2 10*3/uL (1.4-4.0); Lymphocytes % 12.9 % (21.3-54.2); Mean Platelet Volume 9.2 FL (9.6-12.0); Monocytes % 16.4 % (1.7-12.7); Neutrophils % 68.4 % (38.7-73.9); Platelet Count 246 T/CUMM (130-400); Red Blood Count 4.16 MC/CUMM (3.8-5.5); Red Cell Distribution Width 14.7 % (9.3-17.3)
[2021-11-09 06:32] LABS: Calcium 8.7 MG/DL (8.5-10.1); Osmolality,Calculated 264.5 MOS/KG (273-304)
[2021-11-09 06:41] LABS: Hypochromia Slight; Lymphocytes 19 % (20-55); Microcytosis Slight; Platelet Estimate Adequate; Segmented Neutrophils 72 % (50-85); Total Cells Counted 100
[2021-11-09] MEDS: MAGNESIUM SULF RIDER 4 GM/100 ML PREMIX IV PRN (07:21)
[2021-11-09] MEDS: POTASSIUM CHLORIDE 20 MEQ TABLET PO PRN (07:21)
[2021-11-09] MEDS ORDERED: MAGNESIUM SULF RIDER 2 GM/50 ML PREMIX IV ONE (07:32)
[2021-11-09] MEDS: GABAPENTIN 400 MG CAPSULE PO SCH ×3 (09:00→20:46)
[2021-11-09] MEDS: ASPIRIN EC 81 MG TABLET PO SCH (09:00)
[2021-11-09] MEDS: ENOXAPARIN 40 MG/0.4 ML SYRINGE SUBCUT SCH (09:00)
[2021-11-09] MEDS: POTASSIUM CHLORIDE 20 MEQ TABLET PO SCH ×3 (09:00→17:50)
[2021-11-09] MEDS: SODIUM CHLORIDE 1 GM TABLET PO SCH ×4 (09:00→20:46)
[2021-11-09] MEDS: FLUDROCORTISONE 0.1 MG TABLET PO SCH ×2 (09:00→20:46)
[2021-11-09] MEDS: PANTOPRAZOLE 40 MG TABLET PO SCH (09:00)
[2021-11-09] MEDS: CLOPIDOGREL 75 MG TABLET PO SCH (09:00)
[2021-11-09] MEDS: VERAPAMIL SR 120 MG TABLET PO SCH (10:19)
[2021-11-09] MEDS: METOPROLOL SUCCINATE XL 25 MG TABLET PO SCH (20:46)
[2021-11-10] MEDS: LEVALBUTEROL 1.25 MG/3 ML NEB RESP TX SCH ×3 (00:26→13:00)
[2021-11-10 05:18] LABS: Basophils # 0.1 10*3/uL (0.0-0.2); Basophils % 0.6 % (0.0-0.8); Eosinophils # 0.2 10*3/uL (0.0-0.87); Eosinophils % 2.1 % (0.00-10.9); Hematocrit 40.7 VOL% (35.7-47.0); Hemoglobin 12.7 GM/DL (12.0-16.0); Immature Granulocytes % 1.1 %; Immature Granulocytes Absolute 0.11 #; Lymphocytes % 10.3 % (21.3-54.2); Mean Corpuscular HGB Conc 31.2 GM/DL (32-36); Mean Corpuscular Volume 93.1 FL (87-102); Mean Platelet Volume 8.6 FL (9.6-12.0); Monocytes % 14.3 % (1.7-12.7); Neutrophils % 71.6 % (38.7-73.9); Platelet Count 269 T/CUMM (130-400); Red Blood Count 4.37 MC/CUMM (3.8-5.5); Red Cell Distribution Width 15.2 % (9.3-17.3); White Blood Count 10.1 T/CUMM (4-12)
[2021-11-10 05:41] LABS: Calcium 8.5 MG/DL (8.5-10.1); Osmolality,Calculated 266.4 MOS/KG (273-304); Potassium 3.9 MMOL/L (3.5-5.1)
[2021-11-10] MEDS: MAGNESIUM SULF RIDER 4 GM/100 ML PREMIX IV PRN (06:35)
[2021-11-10] MEDS: POTASSIUM CHLORIDE 20 MEQ TABLET PO PRN (06:35)
[2021-11-10] MEDS: ASPIRIN EC 81 MG TABLET PO SCH (09:15)
[2021-11-10] MEDS: SODIUM CHLORIDE 1 GM TABLET PO SCH ×4 (09:15→21:06)
[2021-11-10] MEDS: FLUDROCORTISONE 0.1 MG TABLET PO SCH ×2 (09:15→21:06)
[2021-11-10] MEDS: MAGNESIUM OXIDE 400 MG TABLET PO SCH (09:15)
[2021-11-10] MEDS: ENOXAPARIN 40 MG/0.4 ML SYRINGE SUBCUT SCH (09:15)
[2021-11-10] MEDS: CLOPIDOGREL 75 MG TABLET PO SCH (09:15)
[2021-11-10] MEDS: GABAPENTIN 400 MG CAPSULE PO SCH ×3 (09:15→21:06)
[2021-11-10] MEDS: PANTOPRAZOLE 40 MG TABLET PO SCH (09:16)
[2021-11-10] MEDS ORDERED: FUROSEMIDE 40 MG/4 ML VIAL IV ONE (11:05)
[2021-11-10] MEDS: methylPREDNISolone SOD SUC 125 MG/2 ML VIAL IV SCH ×2 (13:17→21:06)
[2021-11-10] MEDS: LEVOFLOXACIN INJ 500 MG/100 ML PREMIX IV SCH (13:21)
[2021-11-10] MEDS: METOPROLOL SUCCINATE XL 25 MG TABLET PO SCH (21:06)
[2021-11-11] MEDS: LEVALBUTEROL 1.25 MG/3 ML NEB RESP TX SCH ×4 (00:22→13:00)
[2021-11-11] MEDS: methylPREDNISolone SOD SUC 125 MG/2 ML VIAL IV SCH ×2 (04:38→14:42)
[2021-11-11 04:39] LABS: Basophils % 0.2 % (0.0-0.8); Hematocrit 42.1 VOL% (35.7-47.0); Hemoglobin 13.2 GM/DL (12.0-16.0); Immature Granulocytes % 1.7 %; Immature Granulocytes Absolute 0.14 #; Lymphocytes # 0.6 10*3/uL (1.4-4.0); Lymphocytes % 7.4 % (21.3-54.2); Mean Corpuscular HGB Conc 31.4 GM/DL (32-36); Mean Corpuscular Volume 92.7 FL (87-102); Mean Platelet Volume 8.8 FL (9.6-12.0); Monocytes % 6.3 % (1.7-12.7); Neutrophils % 84.4 % (38.7-73.9); Platelet Count 318 T/CUMM (130-400); Red Blood Count 4.54 MC/CUMM (3.8-5.5); Red Cell Distribution Width 15.1 % (9.3-17.3); White Blood Count 8.3 T/CUMM (4-12)
[2021-11-11 05:07] LABS: Calcium 9.3 MG/DL (8.5-10.1); Osmolality,Calculated 274.2 MOS/KG (273-304); Potassium 4.1 MMOL/L (3.5-5.1)
[2021-11-11] MEDS ORDERED: FUROSEMIDE 40 MG TABLET PO SCH (09:00)
[2021-11-11] MEDS: MAGNESIUM OXIDE 400 MG TABLET PO SCH (09:04)
[2021-11-11] MEDS: GABAPENTIN 400 MG CAPSULE PO SCH ×2 (09:05→15:42)
[2021-11-11] MEDS: FLUDROCORTISONE 0.1 MG TABLET PO SCH (09:05)
[2021-11-11] MEDS: CLOPIDOGREL 75 MG TABLET PO SCH (09:05)
[2021-11-11] MEDS: ASPIRIN EC 81 MG TABLET PO SCH (09:05)
[2021-11-11] MEDS: SODIUM CHLORIDE 1 GM TABLET PO SCH (09:05)
[2021-11-11] MEDS: PANTOPRAZOLE 40 MG TABLET PO SCH (09:06)
[2021-11-11] MEDS: ENOXAPARIN 40 MG/0.4 ML SYRINGE SUBCUT SCH (09:07)
[2021-11-11] MEDS: LEVOFLOXACIN INJ 500 MG/100 ML PREMIX IV SCH (14:46)
[2021-11-11 16:51] VITALS: BP 134/70
== END 2021-11-11 19:20 | disposition home health service (06) | DRG 640 ==
LOC: N.ED 19:06 → N.ICU 23:44 → SUATTDRO 23:44 → N.ICU 11-04 01:15 → N.TELEN 11-10 17:31
PROVIDERS: ADMIT Family Medicine; ATTEND Internal Medicine